=== PATIENT | female | born 1985 | race African-American/Black ===

== ENCOUNTER 2016-10-25 05:45 | Inpatient (IN) | payer OTHER ==
[2016-10-25] MEDS ORDERED: CITRIC ACID/SODIUM CITRATE 30 ML UNIT-DOSE CUP PO ONE (06:00)
[2016-10-25] MEDS ORDERED: ELECTROLYTE-148 SOLN 500 ML IV SCH (06:00)
[2016-10-25 06:44] VITALS: BMI 45.4
[2016-10-25] MEDS ORDERED: ELECTROLYTE-148 SOLN 1,000 ML IV SCH (06:45)
--- NOTE | 2016-10-25 06:52 | HP ---
Past Medical History - Primary Care Physician PCP:: Evert Longoria - Admission Chief Complaint: 38 weeks, previous c/s , CHTN. History of Present Illness: 31 yo f edc by alexander 11/08/16 38 weeks, with CHTN on nifedpine , admitted for repeat c/s , fhr cat 1, rba to c/s discussed, fully aware of all risks History Source: Patient Limitations to Obtaining History: No Limitations - Past Medical History Cardiovascular: Yes: HTN ...: 4 ...Para: 1 ...Term: 1 ...Induced : 1 ...LMP: 01/20/16 ... Weeks Gestation by Dates: 39.6 ...EDC by Dates: 10/26/16 ...EDC by Sono: 11/08/16 - Past Surgical History Past Surgical History: Yes: Bariatric Surgery Hx Myomectomy: No Hx Transabdominal Cerclage: No - Smoking History Smoking history: Never smoked Have you smoked in the past 12 months: No Aproximately how many cigarettes per day: 0 - Alcohol/Substance Use Hx Alcohol Use: No - Social History Usual Living Arrangement: Yes: With Spouse History of Recent Travel: No Home Medications - Allergies Allergies/Adverse Reactions: Allergies Allergy/AdvReac Type Severity Reaction Status Date / Time No Known Allergies Allergy Verified 09/27/16 13:11 - Home Medications Home Medications: Ambulatory Orders Pnv95/Ferrous Fumarate/FA [ Caplet] 1 each PO DAILY 05/02/16 Home Medications (free text): procardia 30 mg bid Review of Systems - Review of Systems Constitutional: reports: No Symptoms Eyes: reports: No Symptoms HENT: reports: No Symptoms Neck: reports: No Symptoms Respiratory: reports: No Symptoms Gastrointestinal: reports: No Symptoms Genitourinary: reports: No Symptoms Musculoskeletal: reports: No Symptoms Integumentary: reports: No Symptoms Neurological: reports: Headache Endocrine: reports: No Symptoms Hematology/Lymphatic: reports: No Symptoms Psychiatric: reports: No Symptoms Physical Exam - Maternity Constitutional: Yes: Well Nourished, No Distress, Calm, Obese Eyes: Yes: WNL, Conjunctiva Clear, EOM Intact HENT: Yes: WNL, Atraumatic, Normocephalic Neck: Yes: WNL, Supple, Trachea Midline Cardiovascular: Yes: WNL, Regular Rate and Rhythm Breast(s): Yes: WNL - Abdominal Exam/OB Fundal Height: 38 Number of Fetuses: Single Presentation: Vertex Regularity: Irritability Intensity: Unaware Monitor Mode: External Heart Rate Location: [facility] Category: I Accelerations: Uniform Decelerations: None - Vaginal Exam/OB Vaginal Bleediing: No Speculum Exam: No Dilatation (cm): closed Effacement (%): 0 Amniotic Membrane Status: Intact Presentation: Vertex/Position Station: -3 - Physical Exam Edema: Yes Edema: LLE: 1+, RLE: 1+ Deep Tendon Reflex Grade: Normal +2 Hemorrhage Risk Assessment - Risk Factors Medium Risk Factors: Yes: Prior , uterine surgery,or multiple laparotomies Risk Score: 1 Risk Level: Medium Risk Problem List - Problems (1) with 38 completed weeks gestation Code(s): Z3A.38 - 38 WEEKS GESTATION OF (2) Previous section complicating Code(s): O34.21 - MATERNAL CARE FOR SCAR FROM PREVIOUS * DO NOT USE * (3) Chronic hypertension affecting Code(s): O10.919 - UNSP PRE-EXISTING HTN COMP , UNSP TRIMESTER (4) Obesity Code(s): E66.9 - OBESITY, UNSPECIFIED Assessment/Plan admit for repeat c/s rba discussed
[2016-10-25] MEDS ORDERED: METHYLERGONOVINE MALEATE 0.2 MG/1 ML AMP IM PRN (09:06)
[2016-10-25] MEDS ORDERED: oxyCODONE HCL 5 MG TABLET PO PRN ×2 (09:06)
[2016-10-25] MEDS ORDERED: WITCH HAZEL 50% (TUCKS) 40 PAD/JAR PAD TP PRN (09:06)
[2016-10-25] MEDS ORDERED: BENZOCAINE 28 GM HEMORRHOIDAL OINTMENT PR PRN (09:06)
[2016-10-25] MEDS ORDERED: IBUPROFEN 800 MG/8 ML IJ IVPB PRN (09:06)
[2016-10-25] MEDS ORDERED: diphenhydrAMINE HCL 25 MG CAPSULE (FP) PO PRN (09:06)
[2016-10-25] MEDS ORDERED: BENZOCAINE 20% 57 GM BOTTLE TP PRN (09:06)
[2016-10-25] MEDS ORDERED: OXYTOCIN 20 UNITS in 0.9% NS 1,000 ML IV SCH (09:15)
[2016-10-25] MEDS ORDERED: DEXTROSE 5%-LACTATED RINGERS 1,000 ML IV SCH ×2 (09:15→17:15)
[2016-10-25] MEDS ORDERED: ONDANSETRON 4 MG/2 ML VIAL IVPB PRN (09:26)
[2016-10-25] MEDS ORDERED: morphine SULFATE/Preservative Free 0.5 MG/ML (1cc Syringe) SPIN ONE (09:26)
[2016-10-25] MEDS ORDERED: ENOXAPARIN NA (PORCINE) 40 MG/0.4 ML DISP.SYRIN SQ SCH (10:00)
[2016-10-25] MEDS ORDERED: CEFAZOLIN 1 GM/D5W 50 ML IVPB SCH (10:00)
[2016-10-25] MEDS: PRENATAL VITAMINS W/ FOLIC ACID TABLET (FP) PO SCH (10:57)
[2016-10-25] MEDS: ACETAMINOPHEN 1000 MG/100 ML VIAL (NON FORMULARY) IVPB PRN (13:17)
[2016-10-25] MEDS: CEFAZOLIN 1 GM/D5W 50 ML IVPB SCH (17:21)
[2016-10-26] MEDS: CEFAZOLIN 1 GM/D5W 50 ML IVPB SCH (01:09)
[2016-10-26] MEDS: ACETAMINOPHEN 1000 MG/100 ML VIAL (NON FORMULARY) IVPB PRN (01:19)
--- NOTE | 2016-10-26 08:33 | PN ---
Progress Note (short form) - Note Progress Note: Anesthesia/pain Pt seen and examined S:alert and awake in do distress O: Vital Signs Temperature 99.0 F 10/26/16 06:00 Pulse Rate 90 10/26/16 06:00 Respiratory Rate 20 10/26/16 06:00 Blood Pressure 156/90 10/26/16 06:00 O2 Sat by Pulse Oximetry (%) Current Active Problems Chronic hypertension affecting (Acute) Obesity (Acute) with 38 completed weeks gestation (Acute) Previous section complicating (Acute) s/p c section comfortable BP elevated but did not receive her usual med Anti hypertensive meds per OB Continue current care Emre Busch MD
[2016-10-26 08:36] LABS: BASOPHIL 0.8 % (0-2.0); EOSINOPHIL 0.8 % (0-4.5); MCH 28.9 pg (25.7-33.7); MCHC 33.7 g/dl (32.0-36.0); MEAN CELL VOLUME 85.9 fl (80-96); MEAN PLT VOLUME 9.6 fl (7.5-11.1); NEUTROPHILS 69.2 % (42.8-82.8); PLATELET COUNT 197 K/MM3 (134-434); RDW 14.6 % (11.6-15.6); WHITE BLOOD COUNT 9.3 K/mm3 (4.0-10.0)
[2016-10-26] MEDS ORDERED: NIFEdipine E.R. 30 MG TABLET (FP) PO ONE (08:45)
[2016-10-26] MEDS ORDERED: BISACODYL 10 MG SUPP.RECT RC PRN (09:07)
[2016-10-26] MEDS: ACETAMINOPHEN 325 MG TABLET (FP) PO PRN ×2 (09:40→14:22)
[2016-10-26] MEDS: SIMETHICONE 80 MG TAB.CHEW (FP) PO PRN ×3 (09:41→21:06)
[2016-10-26] MEDS ORDERED: ENOXAPARIN NA (PORCINE) 40 MG/0.4 ML DISP.SYRIN SQ ONE (09:44)
[2016-10-26] MEDS: PRENATAL VITAMINS W/ FOLIC ACID TABLET (FP) PO SCH (09:56)
--- NOTE | 2016-10-26 13:47 | PN ---
Post Progress Note - Subjective Subjective: 31yo P1 with Chronic HTN, Procardia XL started today, denies MEDINA, Visual disturbance, or RUQ pain, voiding, ambulated Post Day: 1 Type of Delivery: Repeat C/S Vital Signs: Vital Signs Temperature 98.3 F 10/26/16 08:15 Pulse Rate 85 10/26/16 08:25 Respiratory Rate 20 10/26/16 08:25 Blood Pressure 170/100 10/26/16 08:25 O2 Sat by Pulse Oximetry (%) Breast Exam: Yes: Soft Uterus: Yes: Fundus Firm Incision: Yes: Sutures intact Abdomen/GI: Yes: Tolerating PO Lochia: Yes: Rubra Lochia, amount: Small Extremities: Yes: Calves non-tender Activity: Ambulating - Labs Labs: CBC WBC 9.3 K/mm3 (4.0-10.0) D 10/26/16 07:30 RBC 5.23 M/mm3 (3.60-5.2) H 10/26/16 07:30 Hgb 15.1 GM/dL (10.7-15.3) 10/26/16 07:30 Hct 44.9 % (32.4-45.2) 10/26/16 07:30 MCV 85.9 fl (80-96) 10/26/16 07:30 MCHC 33.7 g/dl (32.0-36.0) 10/26/16 07:30 RDW 14.6 % (11.6-15.6) 10/26/16 07:30 Plt Count 197 K/MM3 (134-434) 10/26/16 07:30 MPV 9.6 fl (7.5-11.1) 10/26/16 07:30 Neutrophils % 69.2 % (42.8-82.8) 10/26/16 07:30 Lymphocytes % 20.8 % (8-40) 10/26/16 07:30 Monocytes % 8.4 % (3.8-10.2) 10/26/16 07:30 Eosinophils % 0.8 % (0-4.5) 10/26/16 07:30 Basophils % 0.8 % (0-2.0) 10/26/16 07:30 Assessment/Plan 31 yo P2 now, s/p 1'LST c/s Very elevated BP, asymptomatic Labetalol 200mg PO given now PEC labs now, control pain encorage ambulation change to Procardia 60mg
[2016-10-26] MEDS ORDERED: LABETALOL HCL 200 MG TABLET (FP) ONE (14:15)
[2016-10-26] MEDS ORDERED: LABETALOL HCL 200 MG TABLET (FP) PO ONE (14:15)
[2016-10-26] MEDS: IBUPROFEN 600 MG TABLET (FP) PO PRN (14:57)
[2016-10-26 15:34] LABS: BASOPHIL 1.5 % (0-2.0); EOSINOPHIL 1.3 % (0-4.5); MCH 28.5 pg (25.7-33.7); MCHC 33.1 g/dl (32.0-36.0); MEAN CELL VOLUME 86.1 fl (80-96); MEAN PLT VOLUME 9.4 fl (7.5-11.1); NEUTROPHILS 72.1 % (42.8-82.8); PLATELET COUNT 213 K/MM3 (134-434); RDW 14.5 % (11.6-15.6)
[2016-10-26 15:52] LABS: INR 0.96 (0.82-1.09); PROTHROMBIN TIME (PATIENT) 10.5 SEC (9.98-11.88)
[2016-10-26 16:08] LABS: CALCIUM 8.4 mg/dL (8.5-10.1); CREATININE 0.6 mg/dL (0.55-1.02)
[2016-10-26 16:11] LABS: ALBUMIN 2.4 g/dl (3.4-5.0); BILIRUBIN,DIRECT 0.2 mg/dL (0.0-0.2)
[2016-10-26 16:13] LABS: BILIRUBIN,TOTAL 0.5 mg/dL (0.2-1.0); TOT PROT 5.6 g/dl (6.4-8.2)
[2016-10-26] MEDS: LABETALOL HCL 200 MG TABLET (FP) PO PRN (21:06)
[2016-10-26 21:26] LABS: URINE APPEARANCE CLEAR; URINE BILIRUBIN NEGATIVE (NEGATIVE); URINE COLOR LTYELLOW; URINE GLUCOSE (UA) NEGATIVE (NEGATIVE); URINE KETONE NEGATIVE (NEGATIVE); URINE LEUK ESTERASE NEGATIVE (NEGATIVE); URINE NITRITE NEGATIVE (NEGATIVE); URINE PROTEIN NEGATIVE (NEGATIVE); URINE UROBILINOGEN NEGATIVE E.U./dl (0.2-1.0)
[2016-10-26 21:49] LABS: URINE BLOOD 2+ (NEGATIVE)
[2016-10-26 21:51] LABS: URINE BACTERIA RARE /hpf (NONE SEEN); URINE MUCUS RARE; URINE RBC 5 /hpf (0-3); URINE WBC 1 /hpf (3-5)
[2016-10-27] MEDS: LABETALOL HCL 200 MG TABLET (FP) PO PRN ×2 (08:51→21:06)
[2016-10-27] MEDS: ACETAMINOPHEN 325 MG TABLET (FP) PO PRN ×2 (08:51→21:06)
[2016-10-27] MEDS: IBUPROFEN 600 MG TABLET (FP) PO PRN (08:52)
[2016-10-27] MEDS ORDERED: NIFEdipine E.R. 30 MG TABLET (FP) PO SCH (10:00)
[2016-10-27] MEDS ORDERED: NIFEdipine E.R 60 MG TABLET (UD) PO SCH (10:00)
[2016-10-27] MEDS: PRENATAL VITAMINS W/ FOLIC ACID TABLET (FP) PO SCH (10:56)
[2016-10-27] MEDS: ENOXAPARIN NA (PORCINE) 40 MG/0.4 ML DISP.SYRIN SQ SCH (14:27)
--- NOTE | 2016-10-27 19:35 | PN ---
Post Progress Note - Subjective Subjective: 31 yo P2 s/p repeat c/s no complains, + flatus, pain controlled no MEDINA, Visual disturbance or RUQ pain. Post Day: 3 Type of Delivery: Repeat C/S Vital Signs: Vital Signs Temperature 98.2 F 10/27/16 18:00 Pulse Rate 89 10/27/16 18:00 Respiratory Rate 18 10/27/16 18:00 Blood Pressure 132/90 10/27/16 18:00 O2 Sat by Pulse Oximetry (%) Breast Exam: Yes: Soft Uterus: Yes: Fundus Firm Incision: Yes: Sutures intact Abdomen/GI: Yes: Passing flatus, Tolerating PO Lochia: Yes: Rubra Lochia, amount: Small Extremities: Yes: Calves non-tender Activity: Ambulating - Labs Labs: CBC WBC 9.0 K/mm3 (4.0-10.0) 10/26/16 15:00 RBC 5.11 M/mm3 (3.60-5.2) 10/26/16 15:00 Hgb 14.6 GM/dL (10.7-15.3) 10/26/16 15:00 Hct 44.0 % (32.4-45.2) 10/26/16 15:00 MCV 86.1 fl (80-96) 10/26/16 15:00 MCHC 33.1 g/dl (32.0-36.0) 10/26/16 15:00 RDW 14.5 % (11.6-15.6) 10/26/16 15:00 Plt Count 213 K/MM3 (134-434) 10/26/16 15:00 MPV 9.4 fl (7.5-11.1) 10/26/16 15:00 Neutrophils % 72.1 % (42.8-82.8) 10/26/16 15:00 Lymphocytes % 17.2 % (8-40) 10/26/16 15:00 Monocytes % 7.9 % (3.8-10.2) 10/26/16 15:00 Eosinophils % 1.3 % (0-4.5) 10/26/16 15:00 Basophils % 1.5 % (0-2.0) 10/26/16 15:00 Assessment/Plan 31 yo P2 now doing well BPs improving, now on Procardia XL 60mg Vss, Afibrile Baby boy circumcised Plan to D/C in am NPV in 6wks RTO 1 wk and 6wks
[2016-10-27] MEDS ORDERED: SENNOSIDES/DOCUSATE COMBO (SENNA PLUS) TABLET (UD) PO PRN (22:00)
[2016-10-28 06:31] LABS: BASOPHIL 1.2 % (0-2.0); EOSINOPHIL 3.4 % (0-4.5); MCH 29.2 pg (25.7-33.7); MCHC 33.6 g/dl (32.0-36.0); MEAN CELL VOLUME 86.9 fl (80-96); MEAN PLT VOLUME 9.2 fl (7.5-11.1); NEUTROPHILS 54.9 % (42.8-82.8); PLATELET COUNT 240 K/MM3 (134-434); RDW 14.3 % (11.6-15.6); WHITE BLOOD COUNT 6.7 K/mm3 (4.0-10.0)
[2016-10-28] MEDS: LABETALOL HCL 200 MG TABLET (FP) PO PRN (07:49)
--- NOTE | 2016-10-28 09:18 | PN ---
Post Progress Note - Subjective Subjective: 31 yo P2 now has slight MEDINA, no visual changes, no RUQ pain +flatus, ambulating, tolerating regular diet, incision pain controlled Post Day: 3 Type of Delivery: Repeat C/S Vital Signs: Vital Signs Temperature 98.6 F 10/28/16 08:00 Pulse Rate 81 10/28/16 08:00 Respiratory Rate 20 10/28/16 08:00 Blood Pressure 145/91 10/28/16 08:00 O2 Sat by Pulse Oximetry (%) Breast Exam: Yes: Soft Uterus: Yes: Fundus Firm Incision: Yes: Sutures intact Abdomen/GI: Yes: Passing flatus, Tolerating PO Lochia: Yes: Rubra Lochia, amount: Small Extremities: Yes: Calves non-tender Activity: Ambulating - Labs Labs: CBC WBC 6.7 K/mm3 (4.0-10.0) 10/28/16 05:55 RBC 4.67 M/mm3 (3.60-5.2) 10/28/16 05:55 Hgb 13.7 GM/dL (10.7-15.3) 10/28/16 05:55 Hct 40.6 % (32.4-45.2) 10/28/16 05:55 MCV 86.9 fl (80-96) 10/28/16 05:55 MCHC 33.6 g/dl (32.0-36.0) 10/28/16 05:55 RDW 14.3 % (11.6-15.6) 10/28/16 05:55 Plt Count 240 K/MM3 (134-434) 10/28/16 05:55 MPV 9.2 fl (7.5-11.1) 10/28/16 05:55 Neutrophils % 54.9 % (42.8-82.8) D 10/28/16 05:55 Lymphocytes % 33.8 % (8-40) D 10/28/16 05:55 Monocytes % 6.7 % (3.8-10.2) 10/28/16 05:55 Eosinophils % 3.4 % (0-4.5) D 10/28/16 05:55 Basophils % 1.2 % (0-2.0) 10/28/16 05:55 Assessment/Plan 31yo P2 now, s/p repeat c/section BP better controlled cont routine care encourage ambulation cont observing BPs she can monitor BP at home herself Plan to D/C tomorrow on Procardia 60mgXl
[2016-10-28] MEDS: ENOXAPARIN NA (PORCINE) 40 MG/0.4 ML DISP.SYRIN SQ SCH (10:20)
[2016-10-28] MEDS: NIFEdipine E.R 60 MG TABLET (UD) PO SCH (10:22)
[2016-10-28] MEDS: PRENATAL VITAMINS W/ FOLIC ACID TABLET (FP) PO SCH (10:23)
[2016-10-28] MEDS: IBUPROFEN 600 MG TABLET (FP) PO PRN (16:07)
[2016-10-28] MEDS: SIMETHICONE 80 MG TAB.CHEW (FP) PO PRN (16:07)
[2016-10-28] MEDS: ACETAMINOPHEN 325 MG TABLET (FP) PO PRN (16:08)
[2016-10-29] MEDS: NIFEdipine E.R 60 MG TABLET (UD) PO SCH (07:44)
[2016-10-29 08:36] VITALS: BP 140/85; PULSE 83; TEMP 98.2
[2016-10-29] MEDS: PRENATAL VITAMINS W/ FOLIC ACID TABLET (FP) PO SCH (09:49)
[2016-10-29] MEDS: ENOXAPARIN NA (PORCINE) 40 MG/0.4 ML DISP.SYRIN SQ SCH (09:50)
--- NOTE | 2016-10-29 12:16 | DS ---
Physical Exam-AUTOMATION TECHNOLOGIST Vital Signs: Vital Signs Temperature 98.2 F 10/29/16 08:35 Pulse Rate 83 10/29/16 08:35 Respiratory Rate 20 10/29/16 08:35 Blood Pressure 140/85 10/29/16 08:35 O2 Sat by Pulse Oximetry (%) Constitutional: Yes: Well Nourished Eyes: Yes: WNL HENT: Yes: WNL Neck: Yes: WNL Cardiovascular: Yes: WNL Respiratory: Yes: WNL Gastrointestinal: Yes: WNL, Normal Bowel Sounds, Soft Renal/: Yes: WNL Pelvis: Yes: WNL Uterus: Yes: Normal, Firm ....Post : Yes: Uterus firm, Uterus non-tender, Slight lochia rubra Breast(s): Yes: WNL Musculoskeletal: Yes: WNL Extremities: Yes: WNL Integumentary: Yes: WNL Wound/Incision: Yes: Well Approximated, Open to air ...Motor Strength: WNL Psychiatric: Yes: WNL Labs: CBC, BMP 10/28/16 05:55 10/26/16 15:00 Delivery - Delivery Type of Anesthesia: Spinal Episiotomy/Laceration: None EBL (cc): 500 Delivery, Single - Stages of Labor Date of Delivery: 10/25/16 Time of Delivery: 08:31 Time Placenta Delivered: 08:32 - 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 Egg Processing Supervisor/Lending Activities Supervisor Present: Yes Name: Velia Haas Infant Gender: Male Weight: 6 lb 6 oz Position: Right, OA Total Hours ROM (Hrs/Mins): 0/1 - 1 Minute Total Score: 9 10 Minutes Total Score: 9 - Feeding Plan Initial Plan: Exclusive throughout hospitalization - Additional Information: Circumcised Discharge Summary Reason For Visit: REPEAT Current Active Problems Chronic hypertension affecting (Acute) Obesity (Acute) with 38 completed weeks gestation (Acute) Previous section complicating (Acute) Procedures: Principal: Repeat c/section Other Procedures: Penile cercumcision Hospital Course: Delivered Condition: Improved - Instructions Diet, Activity, Other Instructions: Low salt diet Nothing vaginally for 6 weeks Return to office in 1 week Preeclampsia precautions Monitor BP at home Referrals: Evert Longoria MD [Staff Physician] - Disposition: HOME - Home Medications Comprehensive Discharge Medication List: Ambulatory Orders Pnv95/Ferrous Fumarate/FA [ Caplet] 1 each PO DAILY 05/02/16 Procardia Xl 60 mg PO BID 10/25/16
--- NOTE | 2016-10-30 07:16 | OP ---
DATE OF OPERATION: 10/25/2016 PREOPERATIVE DIAGNOSIS: , 38 weeks, previous section, hypertension. POSTOPERATIVE DIAGNOSIS: , 38 weeks, previous section, hypertension. PROCEDURE: Repeat low segment transverse section. SURGEON: Evert Longoria MD RESIDENTIAL DOOR UNIT INSTALLER: Cortes Parsons MD ANESTHESIA: Spinal. ANESTHESIOLOGIST: Zahida Lujan MD ESTIMATED BLOOD LOSS: 500 mL. OPERATION: The patient was taken to the operating room, had adequate spinal anesthesia. Abdomen and perineum were prepped and draped. Pfannenstiel abdominal skin incision was made over the previous incision. Abdominal wall was cut layer by layer, and the peritoneum was exposed and incised. Upon entering the abdominal cavity, lower uterine segment was identified, and uterovesical fold of peritoneum was established, bladder was pushed down. Then, with the lower blade of the [place] retractor in the pelvis, a low transverse uterine incision was made. Incision extended laterally. Amniotic sac was entered. Clear fluid, head delivered. Nasopharynx was suctioned, and live baby was delivered without any difficulty. Placenta was delivered manually. Uterine cavity was cleaned of all remaining tissue. Uterine incision was closed using 2 layers, 1st layer with 0 Biosyn continuous suture, the 2nd layer with 0 Biosyn imbricating the 1st layer. Bladder flap was closed with 0 Biosyn continuous suture. Both tubes and ovaries were checked, were normal. No active bleeding was seen. All the lap pad, sponge, and instrument counts were correct. Then, peritoneum was closed with 0 Biosyn continuous suture, muscles were brought together with interrupted sutures of 0 Biosyn, fascia was closed with 0 Biosyn continuous suture, subcutaneous fat with interrupted suture of 0 Biosyn, and the skin was closed with 3-0 Vicryl subcuticular continuous sutures. Patient tolerated the procedure well, left the OR in good condition. Matthew [id number]
--- NOTE | 2016-10-30 13:32 | PATH ---
Surgical Pathology Report Patient Name: WENDY TORRES Med. Rec. #: [id number] /Age/Gender: 1985 (Age: 31) / F Account: [id number] Location: [facility] OBS/BUYER Taken: 10/25/2016 Received: 10/28/2016 Reported: 10/30/2016 Physicians: Evert Longoria M.D. Specimen(s) Received PLACENTA Clinical History , 2009, 1SPAB, [place] x1, history of hypertension, history of lap band, history of positive PPD Repeat c/section Final Diagnosis PLACENTA, DELIVERY: FOCALLY DISRUPTED THIRD TRIMESTER PLACENTA WITH FOCAL VILLOUS DYSMATURITY, MILD INCREASE IN PREVILLOUS, PERIVILLOUS, AND PRECHORIONIC FIBRIN DEPOSITION, THREE VESSEL UMBILICAL CORD, AND UNREMARKABLE PLACENTAL MEMBRANES. Electronically Signed Fab George M.D. Gross Description The specimen is received fresh, labeled "placenta" and is a 421 gram, 18.0 x 15.0 x 2.8 cm. placenta with attached membranes and umbilical cord. The attached membranes are dominguez, translucent with focal opacities and insert marginally. The umbilical cord measures 36 cm in length and averages 1.2 cm in diameter. The cord inserts eccentrically, 5 cm to the nearest margin. No true knots or strictures are identified. Cut surface of the umbilical cord reveals 3 vessels. The surface is urias-blue with fibrin deposition and appropriate caliber vessels. The maternal surface is red-brown with focal defects. Sectioning reveals red-brown, spongy parenchyma. No focal lesions are identified. Jumpbasting Facing Baster sections are submitted in three cassettes as follows: 1- membrane rolls and umbilical cord; 2-3- full thickness sections of placenta. 10/29/2016 [facility]10/29/2016
== END 2016-10-29 13:00 | disposition home or self-care (01) | DRG 765 ==
LOC: JLDR 05:45 → J3W 10:30
PROVIDERS: ADMIT Obstetrics & Gynecology; ATTEND Obstetrics & Gynecology
PROC: 10D00Z1 Extraction of Products of Conception, Low, Open Approach (ICD-10-PCS; principal; 2016-10-25)
DX: O34.211 Maternal care for low transverse scar from previous cesarean delivery (principal); Z68.42 Body mass index [BMI] 45.0-49.9, adult; O16.4 Unspecified maternal hypertension, complicating childbirth; O99.214 Obesity complicating childbirth; E66.01 Morbid (severe) obesity due to excess calories; Z71.3 Dietary counseling and surveillance; Z3A.38 38 weeks gestation of pregnancy; Z37.0 Single live birth
CPT/HCPCS: 36415; 71020-TC; 80048; 80076; 81003; 81015; 84450; 84460; 85025; 85384; 85610; 88307-TC

== ENCOUNTER 2016-12-11 13:35 | Emergency (ER) | payer OTHER ==
[2016-12-11 14:08] VITALS: BP 146/92; PULSE 90; TEMP 98.1; BMI 42.3
[2016-12-11] MEDS ORDERED: KETOROLAC TROMETHAMINE 60 MG/2 ML VIAL IM ONE (14:31)
--- NOTE | 2016-12-11 14:52 | PDOC ---
History of Present Illness - General Chief Complaint: Back Pain Stated Complaint: BACK PAIN Time Seen by Provider: 12/11/16 14:18 History Source: Patient Exam Limitations: No Limitations - History of Present Illness Initial Comments: 12/11/16 14:31 Patient is here with complaints of acute re-exacerbation of low back pain. Is 2 months , healthy baby. States started 2 days ago to her mid thoracic back and is radiating down bilaterally in the buttocks. Denies fever, denies any problems vaginally including drainage, bleeding, and C- section scar is well-healed. Denies bowel problems or urinary problems. No history of UTI. Has used Flexeril and Naprosyn which she received last February for same type of back pain. Has had no resolution with using these medications this occurrence. States has helped with baby items at home from and has not been doing excessive heavy lifting. Baby is well Occurred: reports: yesterday Severity: reports: moderate Pain Location: reports: back Loss of Consciousness: no loss of consciousness Associated Symptoms (Fall): denies symptoms Past History - Travel Traveled outside of the country in the last 30 days: No Close contact w/someone who was outside of country & ill: No - Past Medical History Allergies/Adverse Reactions: Allergies Allergy/AdvReac Type Severity Reaction Status Date / Time No Known Allergies Allergy Verified 12/11/16 14:04 Home Medications: Ambulatory Orders Nifedipine [Procardia Xl] 60 mg PO DAILY #30 tab.[id number] 10/29/16 Diazepam [Valium] 5 mg PO Q8H PRN #10 tablet MDD 3 12/11/16 Anemia: No Asthma: No Cancer: No Cardiac Disorders: No CVA: No COPD: No CHF: No Dementia: No Diabetes: No GI Disorders: No Disorders: No HTN: Yes Hypercholesterolemia: No Liver Disease: No Suicide Attempt (Hx): No Seizures: No Thyroid Disease: No - Surgical History Abdominal Surgery: No Appendectomy: No Cardiac Surgery: No Cholecystectomy: No Gastric Stapling: (LAP BAND 2014) Lung Surgery: No Neurologic Surgery: No Orthopedic Surgery: No - Psycho/Social/Smoking Cessation Hx Anxiety: No Suicidal Ideation: No Smoking Status: No Smoking History: Never smoked Have you smoked in the past 12 months: No Number of Cigarettes Smoked Daily: 0 Hx Alcohol Use: No Drug/Substance Use Hx: No Substance Use Type: None Hx Substance Use Treatment: No Trauma Specific PMHX - Complaint Specific PMHX Arthritis: No Back Injury: No Neck Injury: No Hx Sacro Iliac Joint Dysfunction: No Review of Systems - Review of Systems Able to Perform ROS?: Yes Is the patient limited Romanian proficient: Yes Constitutional: Yes: Symptoms Reported, See HPI, Malaise. No: Fever, Loss of Appetite HEENTM: Yes: See HPI. No: Symptoms Reported Respiratory: Yes: See HPI Cardiac (ROS): No: Symptoms Reported ABD/GI: Yes: See HPI. No: Symptoms Reported : No: Symptoms Reported Musculoskeletal: Yes: Symptoms Reported, See HPI, Back Pain, Muscle Pain Integumentary: No: Symptoms Reported All Other Systems: Reviewed and Negative *Physical Exam - Vital Signs Last Vital Signs Temp Pulse Resp BP Pulse Ox 98.1 F 90 16 146/92 99 12/11/16 14:04 12/11/16 14:04 12/11/16 14:04 12/11/16 14:04 12/11/16 14:04 - Physical Exam General Appearance: Yes: Nourished, Appropriately Dressed, Apparent Distress, Moderate Distress HEENT: positive: [place], Normal ENT Inspection, TMs Normal, Pharynx Normal Neck: positive: Supple Respiratory/Chest: positive: Lungs Clear, Normal Breath Sounds Gastrointestinal/Abdominal: positive: Soft. negative: Tender Musculoskeletal: positive: Normal Inspection, Muscle Spasm. negative: CVA Tenderness, Vertebral Tenderness Extremity: positive: Normal Capillary Refill, Normal Inspection Integumentary: positive: Normal Color, Dry, Warm Neurologic: positive: welfare interviewer II-XII NML intact, Fully Oriented, Alert, Normal Mood/ Affect, Normal Response, Motor Strength 5/5 Progress Note - Progress Note Progress Note: Acute on chronic back pain. Urinalysis negative. Will change in antispasmodic to Valium and encourage continue NSAIDs use and follow-up with PMD this week for possible further treatment or change in medication. *DC/Admit/Observation/Transfer Diagnosis at time of Disposition: Acute low back pain Qualifiers: Back pain laterality: bilateral Sciatica presence: with sciatica presence unspecified Qualified Code(s): M54.5 - Low back pain - Discharge Dispostion Disposition: HOME Condition at time of disposition: Stable Admit: No - Prescriptions Prescriptions: Diazepam [Valium] 5 mg PO Q8H PRN #10 tablet MDD 3 PRN Reason: spasm - Referrals Referrals: Osvaldo Parekh MD [Primary Care Provider] - - Patient Instructions Printed Discharge Instructions: DI for Back Strain or Sprain Additional Instructions: Rest, no heavy lifting or exercise until pain is resolved Hot soaks to neck and low back as often as possible/hot showers or Jacuzzis No massage or therapy until spasm is gone Continue Naprosyn 500 mg tablets every 8 hours for the next 3 days then as needed for pain and swelling Valium 5 mg every 8 hours as needed for spasm, remembering will make dizzy and sleepy If not significant improvement within 24 hours with medication and rest regime, followup with private physician for change in medications and /or therapy. - Post Discharge Activity Work/School Note: Back to Work
[2016-12-11 15:05] LABS: URINE APPEARANCE CLEAR; URINE BILIRUBIN NEGATIVE (NEGATIVE); URINE BLOOD NEGATIVE (NEGATIVE); URINE COLOR LTYELLOW; URINE GLUCOSE (UA) NEGATIVE (NEGATIVE); URINE KETONE NEGATIVE (NEGATIVE); URINE LEUK ESTERASE NEGATIVE (NEGATIVE); URINE NITRITE NEGATIVE (NEGATIVE); URINE PROTEIN NEGATIVE (NEGATIVE); URINE UROBILINOGEN NEGATIVE E.U./dl (0.2-1.0)
[2016-12-11] MEDS ORDERED: KETOROLAC TROMETHAMINE 30 MG/1 ML VIAL ONE (15:23)
== END 2016-12-11 15:35 | disposition home or self-care (01) ==
LOC: JER 13:35
PROC: 3E0233Z Introduction of Anti-inflammatory into Muscle, Percutaneous Approach (ICD-10-PCS; principal; 2016-12-11)
DX: M54.5 Low back pain (principal); I10 Essential (primary) hypertension
CPT/HCPCS: 81003; 84703; 99281-25

== ENCOUNTER 2018-07-15 10:54 | Emergency (ER) | payer OTHER ==
[2018-07-15 10:59] VITALS: TEMP 98.7; BMI 44.6
--- NOTE | 2018-07-15 11:00 | PDOC ---
History of Present Illness - General Chief Complaint: Headache Stated Complaint: head ache,dizziness,nausea x 1 day Time Seen by Provider: 07/15/18 10:59 - History of Present Illness Initial Comments: 07/15/18 14:46 Chief complaint: Headache and vertigo History of present illness: Patient complains of mild to moderate intermittent headache over the past few days, with episodic dizziness that she describes as "the room spinning. She has been staying home from work. She has no history of migraines but admits being under severe stress at work lately. Review of systems: Denies fever/chills, URI symptoms, sore throat, cough, chest pain, shortness of breath, abdominal pain, nausea, vomiting, diarrhea, visual or focal neurologic symptoms, unsteadiness of gait. Remainder systems reviewed and found to be negative Past medical history: Mild high blood pressure controlled with medication, which she took this morning. Morbid obesity. 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 She has not been sleeping well. She denies the use of tobacco alcohol or nonprescription drugs. Family history is negative. Physical exam: Alert oriented 3 morbidly obese but in no acute distress, relatively cheerful and cooperative Afebrile, vital signs normal, although the blood pressure was initially recorded as 115/100, this was likely spurious. Repeat was 126/76, and the patient has been monitoring her blood pressure at home without noticing any elevation PERRLA 4 mm, fundi shows mild AV nicking but no hemorrhages or exudates, sharp disc margins, and good central venous pulsations. Conjunctivae, ENT clear Neck supple without bruit mass or nodes Lungs clear CV regular without murmur rub or gallop Abdomen benign Neurological C2 to 12 intact. Strength full and symmetric. No focal sensory or motor deficits. Gait stable and unimpaired. There is no ataxia are notable discomfort despite the complaint of vertigo-like symptoms Extremities no CCE Skin clear, no rash, adequate turgor and wet mucous membranes Impression: The patient has no history of migraines or other headache disorder, and no demonstrable neurologic symptoms. She has been under extreme stress, and the symptoms are most likely due to stress and anxiety. Plan: The patient responded well to diclofenac and meclizine. Her symptoms resolved completely. She is completely comfortable, in no pain or other distress upon discharge. She is kept home from work until next week, instructed regarding relaxation techniques and follow-up if symptoms do not resolve or worsen. Past History - Past Medical History Allergies/Adverse Reactions: Allergies Allergy/AdvReac Type Severity Reaction Status Date / Time No Known Allergies Allergy Verified 07/15/18 10:55 Home Medications: Ambulatory Orders Nifedipine [Procardia Xl] 60 mg PO DAILY #30 tab.er.24 10/29/16 Diclofenac Sodium [Voltaren -] 75 mg PO BID PRN #14 tablet.dr 07/15/18 Meclizine HCl [Antivert -] 25 - 50 mg PO TID PRN #15 tablet 07/15/18 Anemia: No Asthma: No Cancer: No Cardiac Disorders: No CVA: No COPD: No CHF: No Dementia: No Diabetes: No GI Disorders: No Disorders: No HTN: Yes Hypercholesterolemia: No Liver Disease: No Seizures: No Thyroid Disease: No - Surgical History Abdominal Surgery: No Appendectomy: No Cardiac Surgery: No Cholecystectomy: No Gastric Stapling: (LAP BAND 2014) Lung Surgery: No Neurologic Surgery: No Orthopedic Surgery: No - Suicide/Smoking/Psychosocial Hx Smoking Status: No Smoking History: Never smoked Have you smoked in the past 12 months: No Number of Cigarettes Smoked Daily: 0 Hx Alcohol Use: No Drug/Substance Use Hx: No Substance Use Type: None Hx Substance Use Treatment: No *Physical Exam - Vital Signs Last Vital Signs Temp Pulse Resp BP Pulse Ox 98.7 F 80 18 115/111 H 100 07/15/18 10:55 07/15/18 10:55 07/15/18 10:55 07/15/18 10:55 07/15/18 10:55 Medical Decision Making - Medical Decision Making 07/15/18 12:04 Patient is much improved with medication. Headache is resolved. Vertigo is resolved. Blood pressure is 126/76. Symptoms almost certainly seemed to be stress related Rest and medication with recheck if symptoms persist or worsen. Fully ambulatory and in no pain or other distress upon discharge. 07/15/18 12:05 *DC/Admit/Observation/Transfer Diagnosis at time of Disposition: Headache Qualifiers: Headache type: tension-type Headache chronicity pattern: episodic headache Intractability: not intractable Qualified Code(s): G44.219 - Episodic tension- type headache, not intractable - Discharge Dispostion Disposition: HOME Condition at time of disposition: Improved Decision to Admit order: No - Prescriptions Prescriptions: Diclofenac Sodium [Voltaren -] 75 mg PO BID PRN #14 tablet. PRN Reason: Headache Meclizine HCl [Antivert -] 25 - 50 mg PO TID PRN #15 tablet PRN Reason: Vertigo - Referrals - Patient Instructions Printed Discharge Instructions: DI for Vertigo, DI for Headache - Post Discharge Activity Forms/Work/School Notes: Back to Work
[2018-07-15] MEDS ORDERED: DICLOFENAC SODIUM 75 MG TABLET.DR PO ONE (11:11)
[2018-07-15] MEDS ORDERED: MECLIZINE HCL 25 MG TABLET (FP) PO ONE (11:12)
[2018-07-15] MEDS ORDERED: MECLIZINE HCL 25 MG TABLET (FP) ONE (11:29)
[2018-07-15 12:03] VITALS: BP 126/83; PULSE 74
== END 2018-07-15 12:46 | disposition home or self-care (01) ==
LOC: FER 10:54
DX: G44.219 Episodic tension-type headache, not intractable (principal); Z98.84 Bariatric surgery status; I10 Essential (primary) hypertension
CPT/HCPCS: 84703; 99282-25

== ENCOUNTER 2018-12-01 12:05 | Emergency (ER) | payer OTHER ==
[2018-12-01 12:18] VITALS: BP 151/97; PULSE 81; TEMP 98.5; BMI 46.0
--- NOTE | 2018-12-01 12:24 | PDOC ---
History of Present Illness - General Chief Complaint: Injury Stated Complaint: FELL AT WORK YESTERDAY INJURED RIGHT ARM AND BACK Time Seen by Provider: 12/01/18 12:18 - History of Present Illness Initial Comments: 12/01/18 13:10 Chief complaint: Right arm pain History of present illness: 33 years old past medical history significant for hypertension presents to the emergency department with one-day history of right arm pain secondary to fall. 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 Yesterday her pain was mild today her pain was more significant is located between her elbow and shoulder there is no deformity she has full range of motion is able to lift above her head and across her body. Pain is moderate worse with movement no alleviating factors persistent constant Past History - Past Medical History Allergies/Adverse Reactions: Allergies Allergy/AdvReac Type Severity Reaction Status Date / Time No Known Allergies Allergy Verified 12/01/18 12:07 Home Medications: Ambulatory Orders Nifedipine [Procardia Xl] 60 mg PO DAILY #30 tab.er.24 10/29/16 Anemia: No Asthma: No Cancer: No Cardiac Disorders: No CVA: No COPD: No CHF: No Dementia: No Diabetes: No GI Disorders: No Disorders: No HTN: Yes Hypercholesterolemia: No Liver Disease: No Seizures: No Thyroid Disease: No - Surgical History Abdominal Surgery: No Appendectomy: No Cardiac Surgery: No Cholecystectomy: No Gastric Stapling: (LAP BAND 2014) Lung Surgery: No Neurologic Surgery: No Orthopedic Surgery: No - Suicide/Smoking/Psychosocial Hx Smoking Status: No Smoking History: Never smoked Have you smoked in the past 12 months: No Number of Cigarettes Smoked Daily: 0 Information on smoking cessation initiated: No Hx Alcohol Use: No Drug/Substance Use Hx: No Substance Use Type: None Hx Substance Use Treatment: No Review of Systems - Review of Systems Comments:: 12/01/18 13:11 ROS: A complete review of 10 out of 10 review of systems is taken and is negative apart from what is previously mentioned below and in the HPI. *Physical Exam - Vital Signs Last Vital Signs Temp Pulse Resp BP Pulse Ox 98.5 F 81 16 151/97 100 12/01/18 12:07 12/01/18 12:07 12/01/18 12:07 12/01/18 12:07 12/01/18 12:07 - Physical Exam Comments: 12/01/18 13:11 Vitals: Triage Vital signs reviewed General Appearance: no acute distress, well nourished well developed, Head: Atraumatic, Neck: Supple;No Nucal rigidity Chest Wall: Nontender Cardiac: Regular rate and rhythym, no murmurs, no rubs, no gallops, Lungs: Clear to auscultation bilateral, good air movement bilaterally, Abdomen: Soft, non distended, normal bowel sounds, non tender to palpation Extremities: Full range of motion to all extremities, no cyanosis, clubbing, or edema mild tenderness palpation over the medial olecranon of the right elbow. Full range of motion neurovascularly intact distally. Skin: Warm and dry, no rashes or lesions, no rash, no petechiae Neuro: AOX3; Cranial Nerves 2-12 grossly intact, Strength intact to all extremities, Sensation intact to all extremities,gait normal Psych: normal mood, normal affect Moderate Sedation - Procedure Monitoring Vital Signs: Procedure Monitoring Vital Signs Temperature 98.5 F 12/01/18 12:07 Pulse Rate 81 12/01/18 12:07 Respiratory Rate 16 12/01/18 12:07 Blood Pressure 151/97 12/01/18 12:07 O2 Sat by Pulse Oximetry (%) 100 12/01/18 12:07 ED Treatment Course - RADIOLOGY Radiology Studies Ordered: Category Date Time Status ELBOW-RIGHT [RAD] Stat Radiology 12/01/18 12:22 Ordered SHOULDER-RIGHT [RAD] Stat Radiology 12/01/18 12:22 Ordered Medical Decision Making - Medical Decision Making 12/01/18 13:13 Well-appearing no apparent distress history examination consistent muscle skeletal injury x-rays negative for acute pathology we'll recommend ice Motrin rest Findings, need follow-up and strict return instructions discussed with patient. *DC/Admit/Observation/Transfer Diagnosis at time of Disposition: Contusion - Discharge Dispostion Disposition: HOME Condition at time of disposition: Stable Decision to Admit order: No - Referrals Referrals: Osvaldo Parekh MD [Primary Care Provider] - Allan Prado MD [Staff Physician] - - Patient Instructions Printed Discharge Instructions: Contusion Additional Instructions: Drink plenty of fluids. Take [id number] Motrin as directed on package. Ice all sore affected areas 20 minutes on 20 minutes off. Rest. If still having pain for greater than 1 week follow-up with Dr. Prado orthopedics - Post Discharge Activity Forms/Work/School Notes: Back to Work
== END 2018-12-01 13:24 | disposition home or self-care (01) ==
LOC: FER 12:05
DX: S40.021A Contusion of right upper arm, initial encounter (principal); W01.0XXA Fall on same level from slipping, tripping and stumbling without subsequent striking against object, initial encounter; Y93.89 Activity, other specified; Y92.239 Unspecified place in hospital as the place of occurrence of the external cause; I10 Essential (primary) hypertension; Z98.84 Bariatric surgery status
CPT/HCPCS: 73030-TC-RT-FY; 73070-TC-RT-FY; 99281-25

== ENCOUNTER 2019-12-01 06:20 | Inpatient (IN) | payer OTHER ==
[2019-12-01 07:34] VITALS: BMI 48.5
[2019-12-01] MEDS ORDERED: CITRIC ACID/SODIUM CITRATE 30 ML UNIT-DOSE CUP PO ONE (07:45)
[2019-12-01] MEDS ORDERED: ELECTROLYTE-148 SOLN 1,000 ML IV SCH (07:45)
[2019-12-01] MEDS ORDERED: morphine SULFATE/PF 0.5 MG/ML (2cc Syringe - QUVA) ONE (08:00)
[2019-12-01] MEDS ORDERED: OXYTOCIN 20 UNITS in 0.9% NS 20 UNIT/1,000 ML INFUS.BAG IV ONE ×3 (08:02→18:50)
[2019-12-01] MEDS ORDERED: ONDANSETRON 4 MG/2 ML VIAL IVPUSH PRN (08:11)
--- NOTE | 2019-12-01 08:29 | HP ---
Past Medical History - Primary Care Physician PCP:: Eevrt Longoria - Admission Chief Complaint: 37 weeks, previous c/s , chronic HTN, iugr, ama. morbid obesity History Source: Patient Limitations to Obtaining History: No Limitations - Past Medical History Cardiovascular: Yes: HTN ...: 3 ...Para: 2 ...Term: 2 ...: 0 ...Spon : 0 ...Induced : 0 ...Multiple Gestation: 0 ...EDC by Sono: 12/22/19 - Past Surgical History Past Surgical History: Yes: Bariatric Surgery, Hx Myomectomy: No Hx Transabdominal Cerclage: No - Smoking History Smoking history: Never smoked Have you smoked in the past 12 months: No Aproximately how many cigarettes per day: 0 - Alcohol/Substance Use Hx Alcohol Use: No - Social History Usual Living Arrangement: Yes: With Spouse History of Recent Travel: No Home Medications - Allergies Allergies/Adverse Reactions: Allergies Allergy/AdvReac Type Severity Reaction Status Date / Time No Known Allergies Allergy Verified 11/10/19 19:13 - Home Medications Home Medications: Ambulatory Orders Amlodipine Besylate [Norvasc -] 10 mg PO DAILY 11/10/19 Labetalol HCl [Normodyne -] 200 mg PO DAILY 11/10/19 Mv-Mn/Iron/FA/Herbal/Digestive [ One Tablet] 1 each PO DAILY 11/10/19 Review of Systems - Review of Systems Constitutional: reports: No Symptoms Eyes: reports: No Symptoms HENT: reports: No Symptoms Neck: reports: No Symptoms Cardiovascular: reports: No Symptoms Respiratory: reports: No Symptoms Gastrointestinal: reports: No Symptoms Genitourinary: reports: No Symptoms Breasts: reports: No Symptoms Reported Musculoskeletal: reports: No Symptoms Integumentary: reports: No Symptoms Neurological: reports: No Symptoms Endocrine: reports: No Symptoms Psychiatric: reports: No Symptoms Physical Exam - Maternity Vital Signs: Vital Signs Temperature 98.1 F 12/01/19 07:19 Pulse Rate 98 H 12/01/19 07:19 Respiratory Rate 17 12/01/19 07:19 Blood Pressure 123/72 12/01/19 07:19 O2 Sat by Pulse Oximetry (%) Constitutional: Yes: Obese Eyes: Yes: WNL HENT: Yes: WNL Neck: Yes: WNL Cardiovascular: Yes: WNL Lungs: Clear to auscultation Breast(s): Yes: WNL - Abdominal Exam/OB Fundal Height: 40 Number of Fetuses: Single Presentation: Vertex Contractions: No Intensity: Unaware Monitor Mode: External Heart Rate Location: [facility] Category: I Accelerations: Non-Uniform Decelerations: None - Vaginal Exam/OB Vaginal Bleediing: No Speculum Exam: No Dilatation (cm): closed Effacement (%): 0 Amniotic Membrane Status: Intact Presentation: Vertex/Position Station: -3 - Physical Exam Musculoskeletal: Yes: WNL Extremities: Yes: WNL Edema: LLE: 1+, RLE: 1+ Deep Tendon Reflex Grade: Normal +2 Psychiatric: Yes: WNL Hemorrhage Risk Assessment - Risk Factors Medium Risk Factors: Yes: Obesity (BMI >40) Risk Score: 1 Risk Level: Medium Risk Problem List - Problems (1) at 37 weeks gestation or greater with abnormal testing Code(s): OSO3892 - (2) Chronic benign essential hypertension in third trimester Code(s): O10.013 - PRE-EXISTING ESSENTIAL HTN COMP , THIRD TRIMESTER (3) Morbid obesity Code(s): E66.01 - MORBID (SEVERE) OBESITY DUE TO EXCESS CALORIES (5) Previous section Code(s): Z98.891 - HISTORY OF UTERINE SCAR FROM PREVIOUS SURGERY (6) Bariatric surgery status complicating , third trimester Code(s): O99.843 - BARIATRIC SURGERY STATUS COMP , THIRD TRIMESTER (7) Admission for sterilization Code(s): Z30.2 - ENCOUNTER FOR STERILIZATION Assessment/Plan repeat c/s, risks associated with repeat c/s discussed wants BTL , aware procedure is permanent and has small failure risks and risks of ectopic . ulternatives discussed
[2019-12-01] MEDS ORDERED: ceFAZolin SODIUM 1 GM VIAL ONE ×2 (08:37→08:38)
[2019-12-01] MEDS ORDERED: PHENYLEPHRINE HCL 10 MG/1 ML SINGLE DOSE VIAL ONE (08:38)
[2019-12-01] MEDS ORDERED: IBUPROFEN 800 MG/8 ML IJ IVPB ONE (10:21)
[2019-12-01] MEDS ORDERED: BENZOCAINE 28 GM HEMORRHOIDAL OINTMENT PR PRN (10:31)
[2019-12-01] MEDS ORDERED: WITCH HAZEL 50% (TUCKS) 40 PAD/JAR PAD TP PRN (10:31)
[2019-12-01] MEDS ORDERED: IBUPROFEN 800 MG/8 ML IJ IVPB PRN (10:31)
[2019-12-01] MEDS ORDERED: IBUPROFEN 600 MG TABLET (FP) PO PRN (10:31)
[2019-12-01] MEDS ORDERED: METHYLERGONOVINE MALEATE 0.2 MG/1 ML AMP IM PRN (10:31)
[2019-12-01] MEDS ORDERED: diphenhydrAMINE HCL 25 MG CAPSULE (FP) PO PRN (10:31)
[2019-12-01] MEDS ORDERED: BENZOCAINE 20% 57 GM BOTTLE TP PRN (10:31)
[2019-12-01] MEDS ORDERED: oxyCODONE HCL 5 MG TABLET PO PRN ×2 (10:31)
[2019-12-01] MEDS: ENOXAPARIN NA (PORCINE) 40 MG/0.4 ML DISP.SYRIN SQ SCH (10:36)
[2019-12-01] MEDS ORDERED: OXYTOCIN 20 UNITS in 0.9% NS 20 UNIT/1,000 ML INFUS.BAG IV SCH (10:45)
[2019-12-01] MEDS ORDERED: DEXTROSE 5%-LACTATED RINGERS 1,000 ML IV SCH (10:45)
--- NOTE | 2019-12-01 11:04 | OP ---
Operative Note - Note: Operative Date: 12/01/19 Operation: 37 weeks, CHTN, obesity, IUGR, sterlization Findings: live baby girl, 9/9 , ROT Surgeon: Evert Longoria Yoghurt Maker: Garrick Keith Anesthesiologist/LECTURER OF [place]: Emre Busch Anesthesia: Spinal Specimens Removed: placenta, portion of Rt and LT tube Estimated Blood Loss (mls): 500 Drains & Tubes with Location: more Drains, Volume Out (mls): 200 Blood Volume Replaced (mls): 0 Fluid Volume Replaced (mls): 1,300 Operative Report Dictated: Yes
[2019-12-01] MEDS ORDERED: ACETAMINOPHEN INJECTION 100 ML IVPB ONE (11:08)
[2019-12-01] MEDS ORDERED: ACETAMINOPHEN 1000 MG/100 ML VIAL (NON FORMULARY) IVPB PRN (11:41)
[2019-12-01] MEDS ORDERED: PROPOFOL 20 ML ONE (12:05)
[2019-12-01] MEDS ORDERED: SUCCINYLCHOLINE CHLORIDE 200 MG/10 ML SYRINGE ONE (12:05)
[2019-12-01] MEDS ORDERED: OXYTOCIN 10 UNITS/ML VIAL ONE (12:19)
[2019-12-01] MEDS ORDERED: TRANEXAMIC ACID 1000 MG/10 ML VIAL ONE (12:36)
[2019-12-01] MEDS ORDERED: MISOPROSTOL 200 MCG TABLET NR ONE ×2 (13:00→13:15)
--- NOTE | 2019-12-01 14:04 | CONSULT ---
Past Medical History, Laborist - Primary Care Physician PCP:: Evert Longoria - Admission Chief Complaint: Called to pt by nursing staff at noon because nof PPH. Had repeat c/ and BS at 8 am today. - Past Medical History ...: 3 ...Para: 2 ...Term: 2 ...: 0 ...Spon : 0 ...Induced : 0 ...Multiple Gestation: 0 ...EDC by Sono: 12/22/19 - Past Surgical History Past Surgical History: Yes: Bariatric Surgery, - Smoking History Smoking history: Never smoked Have you smoked in the past 12 months: No Aproximately how many cigarettes per day: 0 - Alcohol/Substance Use Hx Alcohol Use: No - Social History History of Recent Travel: No Physical Exam - Maternity Vital Signs: Vital Signs Temperature 97.5 F L 12/01/19 09:50 Pulse Rate 72 12/01/19 11:40 Respiratory Rate 20 12/01/19 11:40 Blood Pressure 144/85 12/01/19 11:40 O2 Sat by Pulse Oximetry (%) 100 12/01/19 10:35 Problem List - Problems (1) hemorrhage Code(s): O72.1 - OTHER IMMEDIATE HEMORRHAGE Assessment/Plan On assesement patient was stable but mildly hypotensive. Good pO2. HR 100/lina. Exaamined. Abd. soft. Dressing clean. Uterus soft, difficult to palpate. Pelvic done with fundal massage. About 400 cc of clots removed from vagina and uterus. Ridley in. Continuous massage; uterine clots evacuated, Pitocin running. Given Hemabate [address] Longoria arrived. Pt. subsequently recived secon Hemabate and 2 doses of Cytotec. red packed cells 2 units. Good outcome.
[2019-12-01] MEDS ORDERED: ACETAMINOPHEN 325 MG TABLET (FP) ONE (14:11)
[2019-12-01] MEDS: ACETAMINOPHEN 325 MG TABLET (FP) PO PRN (14:14)
[2019-12-01] MEDS: amLODIPine BESYLATE 10 MG TABLET (FP) PO SCH (15:00)
--- NOTE | 2019-12-01 17:56 | OP ---
DATE OF OPERATION: 12/01/2019 PREOPERATIVE DIAGNOSIS: , 37 weeks, previous section; chronic hypertension; intrauterine growth restriction; morbid obesity; advanced maternal age; voluntary sterilization. POSTOPERATIVE DIAGNOSIS: , 37 weeks, previous section; chronic hypertension; intrauterine growth restriction; morbid obesity; advanced maternal age; voluntary sterilization. PROCEDURE PERFORMED: Repeat low-segment transverse section and bilateral tubal ligation. SURGEON: Evert Longoria MD ABAP DEVELOPER: TRICIA Espinoza ANESTHESIA: Spinal. ANESTHESIOLOGIST: Emre Busch MD ESTIMATED BLOOD LOSS: 500 mL. FINDINGS: A live baby girl, ROT position, Apgars 9 and 9. DESCRIPTION OF PROCEDURE: The patient was taken to the operating room and had adequate spinal anesthesia. Abdomen and perineum were prepped and draped. A Pfannenstiel abdominal skin incision was made over the previous incision. The abdominal wall was cut layer by layer, until the peritoneum was exposed and incised. Upon entering the abdominal cavity, the lower uterine segment was identified and uterovesical fold of peritoneum established. The bladder was pushed down. A low transverse uterine incision was made. The incision was extended laterally with bandage scissors. The amniotic sac was entered. Clear fluid. Head delivered from right occiput transverse position. Nasopharynx was suctioned and live baby girl was delivered, with Apgars of 9 and 9. The placenta was delivered manually. The uterine cavity was cleaned of all remaining tissue. The uterine incision was closed in 2 layers, the 1st layer with 0 Biosyn continuous suture and the 2nd layer with 0 Biosyn imbricating the 1st layer. The bladder flap was closed with 0 Biosyn continuous suture. Both tubes and ovaries were checked and were normal. Then the right tube was grasped with a Crystal clamp. The right tube was doubly tied with 2-0 plain. A portion of tube was removed. Endosalpinx was cauterized. The same procedure was repeated for the opposite tube. Then the fimbriated ends of the tubes were clamped with Sandy clamp and removed. Then the pedicle was tied with 2-0 Vicryl ties. The abdomen was irrigated several times. No active bleeding was seen. All the lap, sponge and instrument counts were correct. Then the peritoneum was closed with 0 Biosyn continuous suture. The muscles were brought together with interrupted suture of 0 Biosyn. The fascia was closed with 0 Biosyn continuous suture, the subcutaneous fat with interrupted suture of 0 Biosyn, and the skin was closed with 3-0 Vicryl subcuticular continuous suture. The patient tolerated the procedure well, and left the OR in good condition. Matthew [id number]
--- NOTE | 2019-12-01 19:14 | PN ---
Progress Note (short form) - Note Progress Note: 1PM i was called to see patient who had repeat c/s and BTL at 830 M TODAYC/O OF HEAVY VAGINAL BLEEDING , PASSING CLOTS . ON ARRIVAL laborist Dr Beaulieu was at patient be side and has exvacuated arge amount of blood clots . patient was awake and alert, oriented , mild transient hypotensive , normal pulse abdomen soft, no distension, , incision ,no bleeding uterus difficult to palpate secondary to obese abdomen and atoni vagina 3oocc of more blood clots removed from vagina and low uterine area impression hemorrhage most likly related uterine atoni patient recived 2 doses of hemabate, 4 200mcg cytotec orally times 2 pitocin 40 units iv drip TXA iv drip 2 18 david iv stated patient bp significantly improved, O2 100 percent, , urine out put improved 4 units of PRBC planned to be transfused with one FFP will get a set of cbc ,coag profile , after transfusion completed patient VS and appearance improved will cont. to monitor VS, bleeding and urinary out put Problem List - Problems (1) at 37 weeks gestation or greater with abnormal testing Code(s): [id number] - (2) Chronic benign essential hypertension in third trimester Code(s): O10.013 - PRE-EXISTING ESSENTIAL HTN COMP , THIRD TRIMESTER (3) Morbid obesity Code(s): E66.01 - MORBID (SEVERE) OBESITY DUE TO EXCESS CALORIES (5) Previous section Code(s): Z98.891 - HISTORY OF UTERINE SCAR FROM PREVIOUS SURGERY (6) Bariatric surgery status complicating , third trimester Code(s): O99.843 - BARIATRIC SURGERY STATUS COMP , THIRD TRIMESTER (7) Admission for sterilization Code(s): Z30.2 - ENCOUNTER FOR STERILIZATION
[2019-12-01] MEDS ORDERED: CEFAZOLIN 1 GM/D5W 1 GM/50 ML BAG ONE (19:29)
[2019-12-01] MEDS: CEFAZOLIN 1 GM/D5W 1 GM/50 ML BAG IVPB SCH (19:31)
[2019-12-01 23:03] LABS: BASO % 0.5 % (0-2.0); EOS % 0.4 % (0-4.5); HEMATOCRIT 42.8 % (32.4-45.2); HEMOGLOBIN 14.2 GM/dL (10.7-15.3); LYMPH % 14.2 % (8-40); MCH 28.3 pg (25.7-33.7); MCHC 33.3 g/dl (32.0-36.0); MEAN PLT VOLUME 9.6 fl (7.5-11.1); MONO % 6.8 % (3.8-10.2); NEUT % 78.1 % (42.8-82.8); PLATELET COUNT 209 K/MM3 (134-434); RBC 5.04 M/mm3 (3.60-5.2); RDW 15.3 % (11.6-15.6); WHITE BLOOD COUNT 16.2 K/mm3 (4.0-10.0)
[2019-12-01 23:19] LABS: INR 0.95 (0.83-1.09); PROTHROMBIN TIME (PATIENT) 11.2 SEC (9.7-13.0)
[2019-12-01 23:22] LABS: ACTIVATED PTT 21.9 SECONDS (25.2-36.5)
[2019-12-02] MEDS ORDERED: OXYTOCIN 20 UNITS in 0.9% NS 20 UNIT/1,000 ML INFUS.BAG IV ONE (00:55)
[2019-12-02 01:05] LABS: ALBUMIN 2.6 g/dl (3.4-5.0); BILIRUBIN,TOTAL 1.3 mg/dL (0.2-1); BLOOD UREA NITROGEN 7.7 mg/dL (7-18); CALCIUM 8.3 mg/dL (8.5-10.1); CREATININE 0.7 mg/dL (0.55-1.3); POTASSIUM 4.1 mmol/L (3.5-5.1); TOT PROT 5.8 g/dl (6.4-8.2)
[2019-12-02] MEDS: CEFAZOLIN 1 GM/D5W 1 GM/50 ML BAG IVPB SCH (01:45)
[2019-12-02] MEDS: IBUPROFEN 600 MG TABLET (FP) PO PRN ×2 (05:58→15:19)
[2019-12-02] MEDS: SIMETHICONE 80 MG TAB.CHEW (FP) PO PRN ×2 (05:58→15:19)
[2019-12-02] MEDS: ACETAMINOPHEN 325 MG TABLET (FP) PO PRN ×2 (05:59→15:20)
[2019-12-02 08:21] LABS: BASO % 0.5 % (0-2.0); EOS % 0.8 % (0-4.5); HEMATOCRIT 39.4 % (32.4-45.2); HEMOGLOBIN 13.5 GM/dL (10.7-15.3); LYMPH % 16.8 % (8-40); MCH 28.8 pg (25.7-33.7); MCHC 34.3 g/dl (32.0-36.0); MEAN PLT VOLUME 9.3 fl (7.5-11.1); MONO % 7.2 % (3.8-10.2); NEUT % 74.7 % (42.8-82.8); PLATELET COUNT 215 K/MM3 (134-434); RBC 4.69 M/mm3 (3.60-5.2); RDW 15.3 % (11.6-15.6); WHITE BLOOD COUNT 12.7 K/mm3 (4.0-10.0)
--- NOTE | 2019-12-02 08:29 | PN ---
Progress Note, Physician Chief Complaint: s/p c section under spinal anesthesia History of Present Illness: post op day one with duramorph intrathecal for pain control - Current Medication List Current Medications: Active Medications Acetaminophen (Tylenol -) 650 mg PO Q4H PRN PRN Reason: PAIN LEVEL 1-5 Last Admin: 12/02/19 05:59 Dose: 650 mg Acetaminophen (Ofirmev Injection -) 1,000 mg IVPB Q6H PRN PRN Reason: POST OP PAIN Last Admin: 12/01/19 11:08 Dose: 1,000 mg Amlodipine Besylate (Norvasc -) 10 mg PO DAILY [facility] Last Admin: 12/01/19 15:00 Dose: 10 mg Benzocaine (Americaine 20% [place] -) 1 spray TP PRN PRN PRN Reason: Pain - Topical Benzocaine (Americaine Ointment -) 1 applic NH PRN PRN PRN Reason: Pain - Topical Bisacodyl (Dulcolax Suppository -) 10 mg NH PRN PRN PRN Reason: CONSTIPATION Diphenhydramine HCl (Benadryl Injection -) 25 mg IVPUSH Q4H PRN PRN Reason: Pruritis Last Admin: 12/02/19 01:43 Dose: 25 mg Diphenhydramine HCl (Benadryl -) 25 mg PO Q8H PRN PRN Reason: FOR ITCHING Enoxaparin Sodium (Lovenox -) 40 mg SQ DAILY [facility] Last Admin: 12/01/19 10:36 Dose: Not Given Parenteral Electrolytes (Plasma-Lyte 148 -) 1,000 mls @ 125 mls/hr IV ASDIR [facility] Last Admin: 12/01/19 07:00 Dose: 125 mls/hr Dextrose/Lactated Ringer's (D5-Lr -) 1,000 mls @ 125 mls/hr IV ASDIR [facility] Ibuprofen (Motrin -) 600 mg PO Q4H PRN PRN Reason: PAIN LEVEL 4 - 6 Last Admin: 12/02/19 05:58 Dose: 600 mg Ibuprofen (Motrin -) 600 mg PO Q4H PRN PRN Reason: PAIN LEVEL 1 - 3 Ibuprofen (Caldolor Injection -) 800 mg IVPB Q6H PRN PRN Reason: PAIN > 5 if PO not effective. Last Admin: 12/01/19 10:30 Dose: 800 mg Labetalol HCl (Normodyne -) 200 mg PO DAILY JAZMINE Methylergonovine Maleate (Methergine Injection -) 0.2 mg IM Q4H PRN PRN Reason: EXCESSIVE BLEEDING Ondansetron HCl (Zofran Injection) 4 mg IVPUSH Q4H PRN PRN Reason: NAUSEA Oxycodone HCl (Roxicodone -) 5 mg PO Q4H PRN PRN Reason: PAIN LEVEL 4 - 6 Oxycodone HCl (Roxicodone -) 10 mg PO Q4H PRN PRN Reason: PAIN LEVEL 7 - 10 Senna/Docusate Sodium (Pericolace -) 2 tablet PO HS PRN PRN Reason: CONSTIPATION Simethicone (Mylicon -) 80 mg PO Q4H PRN PRN Reason: GAS Last Admin: 12/02/19 05:58 Dose: 80 mg Witch Deana/Glycerin (Tucks Pads -) 1 pad TP PRN PRN PRN Reason: Pain - Topical - Objective Vital Signs: Vital Signs Temperature 98.6 F 12/02/19 05:43 Pulse Rate 88 12/02/19 05:43 Respiratory Rate 12/02/19 05:43 Blood Pressure 133/79 12/02/19 05:43 O2 Sat by Pulse Oximetry (%) 100 12/01/19 10:35 Constitutional: Yes: Well Nourished Cardiovascular: Yes: WNL Respiratory: Yes: WNL Gastrointestinal: Yes: WNL Labs: CBC, BMP 12/02/19 07:22 12/01/19 22:50 INR, PTT INR 0.95 (0.83-1.09) 12/01/19 22:50 Fibrinogen > 500.0 mg/dL (238-498) H 12/01/19 22:50 Assessment/Plan doing well, no nausea or vomiting overnight, pain controlled, no anesthetic complications. Dept of anesthesia will sign off care at this time
[2019-12-02] MEDS: LABETALOL HCL 200 MG TABLET (FP) PO SCH (09:30)
[2019-12-02] MEDS: ENOXAPARIN NA (PORCINE) 40 MG/0.4 ML DISP.SYRIN SQ SCH (09:30)
[2019-12-02] MEDS: amLODIPine BESYLATE 10 MG TABLET (FP) PO SCH (09:30)
[2019-12-02] MEDS ORDERED: BISACODYL 10 MG SUPP.RECT PR PRN (10:31)
--- NOTE | 2019-12-02 20:30 | PN ---
Progress Note (short form) - Note Progress Note: pod 1. s/p repeat c/s, btl ,PPH, secondary to uterine atony no c/o , no excess vaginal bleeding, no chest or calf pain, voids ok CBC, BMP 12/02/19 07:22 12/01/19 22:50 Last Vital Signs Temp Pulse Resp BP Pulse Ox 99 F 100 H 20 116/72 100 12/02/19 17:18 12/02/19 17:18 12/02/19 17:18 12/02/19 17:18 12/01/19 10:35 abdomen soft, no distension , no cva , BS are present incison dry, clean , no calf tenderness lochia mild plan ambulate , advance diet DVT prophylaxis Problem List - Problems (1) at 37 weeks gestation or greater with abnormal testing Code(s): IWN4447 - (2) Chronic benign essential hypertension in third trimester Code(s): O10.013 - PRE-EXISTING ESSENTIAL HTN COMP , THIRD TRIMESTER (3) Morbid obesity Code(s): E66.01 - MORBID (SEVERE) OBESITY DUE TO EXCESS CALORIES (5) Previous section Code(s): Z98.891 - HISTORY OF UTERINE SCAR FROM PREVIOUS SURGERY (6) Bariatric surgery status complicating , third trimester Code(s): O99.843 - BARIATRIC SURGERY STATUS COMP , THIRD TRIMESTER (7) Admission for sterilization Code(s): Z30.2 - ENCOUNTER FOR STERILIZATION
[2019-12-03] MEDS: LABETALOL HCL 200 MG TABLET (FP) PO SCH ×2 (00:08→10:16)
[2019-12-03] MEDS: ACETAMINOPHEN 325 MG TABLET (FP) PO PRN ×4 (00:08→18:15)
[2019-12-03] MEDS: SIMETHICONE 80 MG TAB.CHEW (FP) PO PRN ×3 (05:30→18:13)
[2019-12-03] MEDS: IBUPROFEN 600 MG TABLET (FP) PO PRN ×3 (05:31→18:13)
--- NOTE | 2019-12-03 06:45 | PN ---
Progress Note (short form) - Note Progress Note: pod 2, doing well , ambulating , passing gas, no headache Last Vital Signs Temp Pulse Resp BP Pulse Ox 98.2 F 93 H 20 140/78 100 12/03/19 05:55 12/03/19 05:55 12/03/19 05:55 12/03/19 05:55 12/01/19 10:35 abdomen soft, no distension, no cva, BS are present incision dry, clean no calf tenderness plan cbc in am cont to ambulate cont. anti htn meds Problem List - Problems (1) at 37 weeks gestation or greater with abnormal testing Code(s): CNV3250 - (2) Chronic benign essential hypertension in third trimester Code(s): O10.013 - PRE-EXISTING ESSENTIAL HTN COMP , THIRD TRIMESTER (3) Morbid obesity Code(s): E66.01 - MORBID (SEVERE) OBESITY DUE TO EXCESS CALORIES (5) Previous section Code(s): Z98.891 - HISTORY OF UTERINE SCAR FROM PREVIOUS SURGERY (6) Bariatric surgery status complicating , third trimester Code(s): O99.843 - BARIATRIC SURGERY STATUS COMP , THIRD TRIMESTER (7) Admission for sterilization Code(s): Z30.2 - ENCOUNTER FOR STERILIZATION
[2019-12-03] MEDS: amLODIPine BESYLATE 10 MG TABLET (FP) PO SCH (10:16)
[2019-12-03] MEDS: ENOXAPARIN NA (PORCINE) 40 MG/0.4 ML DISP.SYRIN SQ SCH (10:18)
[2019-12-03] MEDS ORDERED: SENNOSIDES/DOCUSATE COMBO (SENNA PLUS) TABLET (UD) PO PRN (22:00)
[2019-12-04] MEDS: IBUPROFEN 600 MG TABLET (FP) PO PRN ×3 (02:52→20:54)
[2019-12-04] MEDS: SIMETHICONE 80 MG TAB.CHEW (FP) PO PRN ×2 (02:52→08:42)
[2019-12-04] MEDS: ACETAMINOPHEN 325 MG TABLET (FP) PO PRN ×3 (02:53→20:53)
[2019-12-04 08:29] LABS: BASO % 0.5 % (0-2.0); EOS % 2.6 % (0-4.5); HEMATOCRIT 33.6 % (32.4-45.2); HEMOGLOBIN 11.5 GM/dL (10.7-15.3); LYMPH % 28.7 % (8-40); MCH 28.9 pg (25.7-33.7); MCHC 34.1 g/dl (32.0-36.0); MEAN CELL VOLUME 84.9 fl (80-96); MEAN PLT VOLUME 8.7 fl (7.5-11.1); MONO % 6.6 % (3.8-10.2); NEUT % 61.6 % (42.8-82.8); PLATELET COUNT 230 K/MM3 (134-434); RBC 3.96 M/mm3 (3.60-5.2); RDW 15.6 % (11.6-15.6); WHITE BLOOD COUNT 7.4 K/mm3 (4.0-10.0)
[2019-12-04] MEDS: LABETALOL HCL 200 MG TABLET (FP) PO SCH ×2 (08:42→10:41)
[2019-12-04] MEDS: ENOXAPARIN NA (PORCINE) 40 MG/0.4 ML DISP.SYRIN SQ SCH (10:31)
[2019-12-04] MEDS: amLODIPine BESYLATE 10 MG TABLET (FP) PO SCH (10:33)
--- NOTE | 2019-12-04 17:48 | PN ---
Post Progress Note - Subjective Subjective: Patient without acute complaints. Reports tolerating oral intake without nausea or vomiting. Ambulating without dizziness. Denies fevers or chills. Pain well controlled with oral pain medication. Pumping/breast feeding without issue. Passing flatus and had BM. Post Day: 3 Type of Delivery: Repeat C/S Vital Signs: Vital Signs Temperature 98.6 F 12/04/19 13:46 Pulse Rate 93 H 12/04/19 13:46 Respiratory Rate 12/04/19 13:46 Blood Pressure 131/63 12/04/19 13:46 O2 Sat by Pulse Oximetry (%) 100 12/01/19 10:35 Breast Exam: Yes: Soft Uterus: Yes: Fundus Firm, Fundus below umbilicus, Non-tender Incision: Yes: Dressing dry and intact, Sutures intact Abdomen/GI: Yes: Abdomen soft, Passing flatus, Tolerating PO Lochia: Yes: Rubra Lochia, amount: Small Extremities: Yes: Calves non-tender Perineum: Yes: Intact Activity: Ambulating - Labs Labs: CBC WBC 7.4 K/mm3 (4.0-10.0) 12/04/19 07:54 RBC 3.96 M/mm3 (3.60-5.2) 12/04/19 07:54 Hgb 11.5 GM/dL (10.7-15.3) 12/04/19 07:54 Hct 33.6 % (32.4-45.2) 12/04/19 07:54 MCV 84.9 fl (80-96) 12/04/19 07:54 MCH 28.9 pg (25.7-33.7) 12/04/19 07:54 MCHC 34.1 g/dl (32.0-36.0) 12/04/19 07:54 RDW 15.6 % (11.6-15.6) 12/04/19 07:54 Plt Count 230 K/MM3 (134-434) 12/04/19 07:54 MPV 8.7 fl (7.5-11.1) 12/04/19 07:54 Absolute Neuts (auto) 4.6 K/mm3 (1.5-8.0) 12/04/19 07:54 Neutrophils % 61.6 % (42.8-82.8) 12/04/19 07:54 Lymphocytes % 28.7 % (8-40) D 12/04/19 07:54 Monocytes % 6.6 % (3.8-10.2) 12/04/19 07:54 Eosinophils % 2.6 % (0-4.5) D 12/04/19 07:54 Basophils % 0.5 % (0-2.0) 12/04/19 07:54 Nucleated RBC % 0 % (0-0) 12/04/19 07:54 Assessment/Plan 34yo s/p repeat LT C/S, doing well stable, afebrile. The pt is asymptomatic for s/sxs of anemia. care instructions reviewed. Continue routine postop care. Ambulation encouraged.
--- NOTE | 2019-12-04 17:53 | DS ---
Physical Exam-SPOOL SANDER Vital Signs: Vital Signs Temperature 98.6 F 12/04/19 13:46 Pulse Rate 93 H 12/04/19 13:46 Respiratory Rate 20 12/04/19 13:46 Blood Pressure 131/63 12/04/19 13:46 O2 Sat by Pulse Oximetry (%) 100 12/01/19 10:35 Constitutional: Yes: No Distress, Calm, Obese Eyes: Yes: WNL, Conjunctiva Clear, EOM Intact HENT: Yes: WNL, Atraumatic, Normocephalic Neck: Yes: WNL, Supple, Trachea Midline Cardiovascular: Yes: WNL, Regular Rate and Rhythm Respiratory: Yes: WNL, Regular, CTA Bilaterally Gastrointestinal: Yes: Normal Bowel Sounds, Soft, Abdomen, Obese ...Rectal Exam: Yes: Deferred Renal/: Yes: WNL External Genitalia: Yes: Normal Internal Exam Deferred: Yes ....Post : Yes: Uterus firm, Uterus non-tender, Slight lochia rubra Breast(s): Yes: WNL Musculoskeletal: Yes: WNL Extremities: Yes: WNL Edema: No Integumentary: Yes: WNL Wound/Incision: Yes: Clean/Dry, Well Approximated, Sutures Intact, Steri Strips , Open to air Neurological: Yes: WNL, Alert, Oriented ...Motor Strength: WNL Psychiatric: Yes: WNL, Alert, Oriented Labs: CBC, BMP 12/04/19 07:54 12/01/19 22:50 Delivery - Delivery Section: Repeat, Low Flap Transverse Type of Anesthesia: Spinal EBL (cc): 500 Delivery, Single - Stages of Labor Date of Delivery: 12/01/19 Time of Delivery: 08:51 Time Placenta Delivered: 08:52 - 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 Derrick 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 Basketball Present: Yes Name: Franny Jeff Infant Gender: Female Weight: 2.551 kg Total Hours ROM (Hrs/Mins): 2 minutes - 1 Minute Total Score: 9 5 Minutes Total Score: 9 - Feeding Plan Initial Plan: Exclusive throughout hospitalization Discharge Summary Problems reviewed: Yes Reason For Visit: LABOR ADMIT Current Active Problems Admission for sterilization (Acute) Bariatric surgery status complicating , third trimester (Acute) Chronic benign essential hypertension in third trimester (Acute) IUGR (intrauterine growth restriction) (Acute) Morbid obesity (Acute) hemorrhage (Acute) at 37 weeks gestation or greater with abnormal testing ( Acute) Previous section (Acute) Procedures: Principal: Repeat C/S Other Procedures: BTL Hospital Course: Postop, hemorrhage Health Concerns: morbid obesity, chronic HTN, increased risk of hemorrhage and infection, increased risk of postop complications. Plan of Treatment: Ambulation, postop care Condition: Good - Instructions Diet, Activity, Other Instructions: Physical activity Resume your normal everyday activity as tolerated no heavy lifting or exercise until seen by your surgeon. You may walk unlimited brenda of and climb stairs. You may resume driving the car when you feel safe and comfortable behind the wheel. No sexual activity as instructed. Wound care If you have a bandage, leave it on, and keep dry for 48-72 hours. After that time discard the outer bandage. If they are tapes on the skin under the out of bandage leave them in place. They will peel off in the next 7 to 10 days. Do Not Peel them off. You may shower the day after surgery. If there are tapes present on the skin, you may shower over them. Diet There are no dietary restrictions. Eat healthy, high-fiber foods. Drink 6 to 8 glasses of liquid each day. This will assist in keeping your bowels are regular. Pain management You may take Tylenol or acetaminophen or Ibuprofen (for example, Motrin, Advil etc.) from my pain prescription medication is ordered should be taken as prescribed for moderate to severe pain. Call MD for any of the following: Severe pain not relieved by medication Fever of 101 or higher Excessive bleeding or drainage on dressing Inability to urinate Referrals: Evert Longoria MD [Staff Physician] - Disposition: HOME - Home Medications Comprehensive Discharge Medication List: Ambulatory Orders Amlodipine Besylate [Norvasc -] 10 mg PO DAILY 11/10/19 Labetalol HCl [Normodyne -] 200 mg PO DAILY 11/10/19 Mv-Mn/Iron/FA/Herbal/Digestive [ One Tablet] 1 each PO DAILY 11/10/19 Prescription Drug Monitoring Program (I-STOP) results: I-STOP not reviewed
[2019-12-05] MEDS: LABETALOL HCL 200 MG TABLET (FP) PO SCH (09:45)
[2019-12-05] MEDS: ENOXAPARIN NA (PORCINE) 40 MG/0.4 ML DISP.SYRIN SQ SCH (09:45)
[2019-12-05] MEDS: amLODIPine BESYLATE 10 MG TABLET (FP) PO SCH (09:45)
[2019-12-05 13:01] VITALS: BP 136/80; PULSE 82; TEMP 97.9
--- NOTE | 2019-12-06 16:46 | PATH ---
Surgical Pathology Report Patient Name: WENDY TORRES [facility]. Rec. 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 Specimen(s) Received A: PLACENTA B: LEFT PORTION OF FALLOPIAN TUBE C: RIGHT PORTION OF FALLOPIAN TUBE Clinical History , C-sections x2, chronic hypertension, 37.1 weeks Final Diagnosis A. PLACENTA, SECTION: 409 G THIRD TRIMESTER PLACENTA WITH TRIVASCULAR UMBILICAL CORD AND UNREMARKABLE PLACENTAL MEMBRANES. B. PORTION OF FALLOPIAN TUBE, LEFT, PARTIAL EXCISION: FALLOPIAN TUBE WITH FOCAL ENDOSALPINGOSIS, PARATUBAL AND WALTHARD NEST CYSTS (INCLUDING FIMBRIATED END AND FULL LUMINAL PORTION). C. PORTION OF FALLOPIAN TUBE, RIGHT, PARTIAL EXCISION: UNREMARKABLE FALLOPIAN TUBE (INCLUDING FIMBRIATED END AND FULL LUMINAL PORTION). Electronically Signed Anna Howe M.D. Gross Description A. The specimen is received fresh labeled placenta and is a 409 gram, 16.5 x 14.0 x 2.5 cm. placenta with attached membranes and umbilical cord. The attached membranes are dominguez, translucent with focal opacities and insert marginally. The umbilical cord measures 14 cm. in length and averages 1.1 cm. in diameter. The cord inserts eccentrically, 5 cm. to the nearest margin. No true knots or strictures are identified. Cut surface of the umbilical cord reveals 3 vessels. The surface is urias-blue with minimal fibrin deposition and appropriate caliber vessels. The maternal surface is red-brown with focal defects. Sectioning reveals red-brown, spongy parenchyma. No lesions are identified. Wire Coiler sections are submitted in three cassettes as follows: 1- membrane rolls and umbilical cord; 2-3- full thickness sections of placenta. B. Received in formalin labeled "portion of fallopian tube left," is a 1.7 cm in length fimbriated portion of fallopian tube. The outer surface is dominguez-suarez and smooth. Sectioning reveals an unremarkable lumen. Wire Coiler sections are submitted in 2 cassettes as follows: 1-fimbriae; 2-cross sections of fallopian tube. C. Received in formalin labeled "portion of fallopian tube right," is a 1.0 cm in length fimbriated portion of fallopian tube. The outer surface is suarez purple and smooth. Sectioning reveals an unremarkable lumen. There is an additional 1.2 cm in length unremarkable portion of fallopian tube separately received within the same container. Wire Coiler sections are submitted in 2 cassettes as follows: 1-fimbria; 2-cross sections of fallopian tube. 12/03/2019 [facility]12/03/2019
== END 2019-12-05 12:30 | disposition home or self-care (01) | DRG 784 ==
LOC: JLDR 06:20 → J3W 12-02 01:33
PROVIDERS: ADMIT Obstetrics & Gynecology; ATTEND Obstetrics & Gynecology
PROC: 10D00Z1 Extraction of Products of Conception, Low, Open Approach (ICD-10-PCS; principal; 2019-12-01)
PROC: 0UL70ZZ Occlusion of Bilateral Fallopian Tubes, Open Approach (ICD-10-PCS; 2019-12-01)
DX: O34.211 Maternal care for low transverse scar from previous cesarean delivery (principal); O72.1 Other immediate postpartum hemorrhage; O10.02 Pre-existing essential hypertension complicating childbirth; O36.5930 Maternal care for other known or suspected poor fetal growth, third trimester, not applicable or unspecified; O99.214 Obesity complicating childbirth; E66.01 Morbid (severe) obesity due to excess calories; O99.844 Bariatric surgery status complicating childbirth; Z3A.37 37 weeks gestation of pregnancy; Z37.0 Single live birth; Z30.2 Encounter for sterilization
CPT/HCPCS: 36415; 36430; 36511; 36600; 80053; 82803; 85025; 85362; 85384; 85610; 85730; 88302-TC; 88307-TC; J0131; P9017; P9038; P9058

== ENCOUNTER 2021-07-10 14:19 | Emergency (ER) | payer OTHER ==
[2021-07-10 14:41] VITALS: BP 123/86; PULSE 92; TEMP 98.1; BMI 48.0
[2021-07-10 15:12] LABS: BASO % 1.8 % (0-2.0); HEMATOCRIT 42.3 % (32.4-45.2); HEMOGLOBIN 14.3 GM/dL (10.7-15.3); LYMPH % 46.9 % (8-40); MCH 26.9 pg (25.7-33.7); MCHC 33.7 g/dl (32.0-36.0); MEAN CELL VOLUME 79.8 fl (80-96); MEAN PLT VOLUME 9.1 fl (7.5-11.1); MONO % 5.8 % (3.8-10.2); NEUT % 43.5 % (42.8-82.8); PLATELET COUNT 302 10^3/uL (134-434); RDW 14.2 % (11.6-15.6); WHITE BLOOD COUNT 5.9 K/mm3 (4.0-10.0)
[2021-07-10 19:03] LABS: SYPHILIS W/ RPR CONF NON-REACTIVE (NONREACTIVE)
[2021-07-10 19:31] LABS: HIV INTERPRETATION NEGATIVE (NEGATIVE)
== END 2021-07-10 15:25 | disposition home or self-care (01) ==
LOC: JERFT 14:19 → JER 14:19 → JERFT 15:25
DX: S61.031A Puncture wound without foreign body of right thumb without damage to nail, initial encounter (principal); W46.1XXA Contact with contaminated hypodermic needle, initial encounter; Y92.9 Unspecified place or not applicable
CPT/HCPCS: 36415; 85025; 86704; 86706; 86780; 86803; 87340; 87389; 87517; 99283-25

== ENCOUNTER 2022-10-22 17:50 | Emergency (ER) | payer OTHER ==
[2022-10-22 18:09] VITALS: BP 155/97; PULSE 75; RESP 18; TEMP 99.2; BMI 43.8
[2022-10-22] MEDS ORDERED: LIDOCAINE 5% TOPICAL PATCH TP ONE (18:15)
[2022-10-22] MEDS ORDERED: KETOROLAC TROMETHAMINE 30 MG/1 ML VIAL IM ONE (18:15)
[2022-10-22] MEDS ORDERED: KETOROLAC TROMETHAMINE 30 MG/1 ML VIAL ONE (18:40)
[2022-10-22] MEDS ORDERED: LIDOCAINE 5% TOPICAL PATCH ONE (18:40)
== END 2022-10-22 18:51 | disposition home or self-care (01) ==
LOC: FER 17:50
PROC: 3E023GC Introduction of Other Therapeutic Substance into Muscle, Percutaneous Approach (ICD-10-PCS; principal; 2022-10-22)
DX: M54.2 Cervicalgia (principal); V49.40XA Driver injured in collision with unspecified motor vehicles in traffic accident, initial encounter
CPT/HCPCS: 99284-25